=== PATIENT | male | born 1995 | race Caucasian/White ===

== ENCOUNTER → 2020-01-03 09:23 | Outpatient (CLI) | payer OTHER, SELFPAY ==
[2016-11-08 10:05] VITALS: BMI 21.1
[2020-01-03 10:56] LABS: Thyroid Stim Hormone (TSH) 1.46 uIU/mL (0.358-3.74)
== END ==
LOC: MFPLAB 09:26
PROVIDERS: PCP Family Medicine; Referring Provider Family Medicine; Visit Provider Family Medicine
DX: F32.9 Major depressive disorder, single episode, unspecified (principal)
CPT/HCPCS: 36415; 84443